=== PATIENT | male | born 1965 | race African-American/Black ===

== ENCOUNTER 2019-06-10 02:42 | Emergency (ER) | payer MEDICAID ==
[~2019-06-10] VITALS: Ht 170.2 cm; Wt 74.8 kg
[2019-06-10 02:55] VITALS: BP 165/78
--- NOTE | 2019-06-10 02:55 | NUR ---
ED Nurse Note: Patient walked in to ER c/o abcess on right side of mouth x 2 days. As per patient he broke his jaw 4 months ago. No SOB. Afebrile. VSS.
--- NOTE | 2019-06-10 03:00 | NUR ---
ED Nurse Note: ERMD at bedside.
[2019-06-10] MEDS ORDERED: HYDROcodone/Acetamin 5/325 tab ORAL ONE (03:15)
[2019-06-10] MEDS ORDERED: IBUPROFEN600 MG ORAL (03:16)
[2019-06-10] MEDS ORDERED: NORVASC10 MG ORAL (03:16)
[2019-06-10] MEDS ORDERED: AMOXICILLIN500 MG ORAL (03:16)
[2019-06-10] MEDS ORDERED: HYDROCODON-ACE1 EA15 ORAL (03:16)
--- NOTE | 2019-06-10 03:17 | Emergency Room Report ---
History of Present Illness General Chief Complaint: Toothache Source: Patient Present Illness HPI Is a 54-year-old male with a history of high blood pressure. He presents with chief complaint of dental pain. Onset for 1 day. There is some swelling to the left lower jaw. He also said he had a jaw fracture diagnosed at another hospital about 4 5 months ago. He never had surgery. He need to fix it. Patient complained of jaw pain that is 8 out of 10. Worse with eating. No fever chills but no nausea no vomiting. He is a smoker. Allergies: Coded Allergies: No Known Allergies (Unverified , 06/10/19) Patient History Past Medical History: see triage record, old chart reviewed, HTN Past Surgical History: other Pertinent Family History: none Social History: Reports: smoking Immunizations: other Reviewed Nursing Documentation: PMH: Agreed; PSxH: Agreed Nursing Documentation-PMH Hx Hypertension: Yes Hx Asthma: Yes Review of Systems Eye: Denies: eye pain, blurred vision ENT: Denies: ear pain, nose congestion, throat swelling Respiratory: Denies: cough, shortness of breath Cardiovascular: Denies: chest pain, palpitations Gastrointestinal: Denies: abdominal pain, diarrhea, nausea, vomiting Musculoskeletal: Denies: back pain, joint pain Skin: Denies: rash Neurological: Denies: headache, numbness Endocrine: Denies: increased thirst, increased urine Hematologic/Lymphatic: Denies: easy bruising All Other Systems: negative except mentioned in HPI Physical Exam Vital Signs Date Time Temp Pulse Resp B/P (MAP) Pulse Ox O2 Delivery O2 Flow Rate FiO2 06/10/19 02:47 98.1 75 14 165/78 (107) 94 Room Air Vitals with high blood pressure Sp02 EP Interpretation: reviewed, normal General Appearance: well appearing, no apparent distress, alert Head: normocephalic, atraumatic Eyes: bilateral eye PERRL, bilateral eye EOMI ENT: hearing grossly normal, normal pharynx, other - Poor dentition. On the right lower jaw near the first premolar, there is a small abscess. Neck: full range of motion, supple, no meningismus Respiratory: chest non-tender, lungs clear, normal breath sounds Cardiovascular #1: regular rate, rhythm, no murmur Gastrointestinal: normal bowel sounds, non tender, no mass, no organomegaly, no bruit, non-distended Musculoskeletal: back normal, normal range of motion, gait/station normal Psychiatric: mood/affect normal Procedures Incision and Drainage Incision and Drainage : Consent: Verbal Site: Dental Blade Size: 11 Anesthesia: 1% Lidocaine Volume Anesthetic (ccs): 1 Patient Tolerated: Well Complications: None Progress Local anesthetic with 1% lidocaine without epinephrine. A beta 1 cm incision there is small amount of pus expressed. Patient tolerated procedure without any problem. Medical Decision Making Diagnostic Impression: Primary Impression: Dental abscess Additional Impression: Hypertension Qualified Codes: I10 - Essential (primary) hypertension ER Course Patient with a dental abscess. No evidence of deep infection. As far as his jaw fracture, there is been in 4 to 5 months. He will need outpatient referral to see or maxillary surgeon. This can be done through his insurance and doctor. No emergent issue here. I explained this to the patient. Last Vital Signs Date Time Temp Pulse Resp B/P (MAP) Pulse Ox O2 Delivery O2 Flow Rate FiO2 06/10/19 02:55 98.1 78 14 165/78 94 Room Air Status: improved Disposition: HOME, SELF-CARE Condition: Stable Scripts Amlodipine Besylate (Norvasc) 10 Mg Tablet 10 MG ORAL DAILY, #90 TAB Prov: Harley Reyes MD 06/10/19 Ibuprofen* (MOTRIN*) 600 Mg Tablet 600 MG ORAL THREE TIMES A DAY, #30 TAB 0 Refills Prov: Harley Reyes MD 06/10/19 Hydrocodone/Acetaminophen 5-325* (HYDROCODONE/ACETAMINOPHEN 5-325*) 1 Each Tablet 1 TAB ORAL Q6H PRN for For Pain, #10 TAB 0 Refills Prov: Harley Reyes MD 06/10/19 Amoxicillin* (AMOXIL*) 500 Mg Capsule 500 MG ORAL THREE TIMES A DAY, #21 CAP Prov: Harley Reyes MD 06/10/19 Referrals: [facility],REFERRING (PCP) Additional Instructions: Follow-up with the dentist JUHI. Follow-up with your doctor within a week. You will need referral to see an oral maxillary surgeon or plastic surgeon for your jaw fracture. Take your blood pressure medication. Return if worse. Harley Reyes MD Jun 10, 2019 03:17
[2019-06-10 03:20] VITALS: BP 165/78
--- NOTE | 2019-06-10 03:20 | NUR ---
ED Nurse Note: Pt cleared by ERMD for discharge. DC instructions/prescription was given and explained to pt and verbalized understanding of teachings. All medical deviecs such as ID band removed. Pt is AAO x4, ambulatory and left with all personal belongings. Accompanied by .
== END 2019-06-10 03:20 | disposition home or self-care (01) ==
LOC: EMR 03:01
DX: K04.7 Periapical abscess without sinus (principal); I10 Essential (primary) hypertension; F17.200 Nicotine dependence, unspecified, uncomplicated; R68.84 Jaw pain
CPT/HCPCS: 10060; Z7502; 99282

== ENCOUNTER 2020-01-05 05:46 | Emergency (ER) | payer MEDICAID ==
[~2020-01-05] VITALS: Ht 170.2 cm; Wt 68.0 kg
[~2020-01-05 05:46] MED LIST: AMLODIPINE BESY10 MG ORAL; AMOXICILLIN500 MG ORAL; GABAPENTIN400 MG ORAL; HYDROCODON-ACE1 EA15 ORAL; IBUPROFEN600 MG ORAL; NORVASC10 MG ORAL; ZITHROMAX250 MG ORAL
--- NOTE | 2020-01-05 05:55 | NUR ---
ED Nurse Note: ambulated to ed c/o worsening left upper back pain x 2 weeks. reports aching constant 10/10 pain. patient was recently seen at [facility] [place] ed 2 weeks [facility] for same reason. patient ambulated steady to [facility]. changed into gown. AO4. NAD. VSS. all safety measures met.
[2020-01-05 06:00] VITALS: BP 143/79
--- NOTE | 2020-01-05 06:00 | NUR ---
ED Nurse Note: urine collected; sent down to lab.
[2020-01-05] MEDS ORDERED: Ketorolac 30mg Inj IM ONE (06:30)
--- NOTE | 2020-01-05 06:30 | NUR ---
ED Nurse Note: IV access established. blood collected; sent down to lab.
[2020-01-05] MEDS ORDERED: Ketorolac 30mg Inj IV ONE (06:45)
--- NOTE | 2020-01-05 06:45 | NUR ---
ED Nurse Note: Patient medicated; tolerated well. Patient down to imaging with instrumentation technician via wheelchair.
--- NOTE | 2020-01-05 06:47 | Emergency Room Report ---
History of Present Illness General Chief Complaint: Back Pain-No Injury Source: Patient Present Illness HPI 54-year-old male presents complaining of left shoulder and left upper back pain. Has been going on for several weeks now. Was seen here on 12/11 for same problem. Told it was a pinched nerve and prescribed medication. States the medications are not helping. Pain is dull, 7 out of 10, radiating down the left arm. Denies any weakness. Denies any chest pain or shortness of breath. No other aggravating relieving factors. Denies any other associated symptoms Allergies: Coded Allergies: No Known Allergies (Unverified , 06/10/19) COVID-19 Screening Contact w/high risk pt: No Recent Travel to affected area: No Experienced COVID-19 symptoms?: No COVID-19 Testing performed [employer]: No Patient History Past Medical History: none, HTN, asthma Past Surgical History: none Pertinent Family History: none Social History: Denies: smoking, alcohol use, drug use Immunizations: UTD Reviewed Nursing Documentation: PMH: Agreed; PSxH: Agreed Nursing Documentation-PMH Hx Hypertension: Yes Hx Asthma: Yes Review of Systems All Other Systems: negative except mentioned in HPI Physical Exam Vital Signs Date Time Temp Pulse Resp B/P (MAP) Pulse Ox O2 Delivery O2 Flow Rate FiO2 01/05/20 05:52 98.1 59 18 152/88 (109) 99 Room Air Sp02 EP Interpretation: reviewed, normal General Appearance: no apparent distress, alert, GCS 15, non-toxic Head: normocephalic, atraumatic Eyes: bilateral eye normal inspection, bilateral eye PERRL ENT: hearing grossly normal, normal pharynx, no angioedema, normal voice Neck: full range of motion, supple/symm/no masses Respiratory: chest non-tender, lungs clear, normal breath sounds, speaking full sentences Cardiovascular #1: regular rate, rhythm, no edema Cardiovascular #2: 2+ carotid (R), 2+ carotid (L), 2+ radial (R), 2+ radial (L) , 2+ dorsalis pedis (R), 2+ dorsalis pedis (L) Gastrointestinal: normal bowel sounds, non tender, soft, non-distended, no guarding, no rebound Rectal: deferred Genitourinary: normal inspection, no CVA tenderness Musculoskeletal: normal range of motion, gait/station normal, tender - L upper back pain TTP Neurologic: alert, motor strength/tone normal, oriented x3, sensory intact, responsive, speech normal Psychiatric: judgement/insight normal, memory normal, mood/affect normal, no suicidal/homicidal ideation Reflexes: 3+ bicep (R), 3+ bicep (L), 3+ tricep (R), 3+ tricep (L), 3+ knee (R) , 3+ knee (L) Skin: no rash Lymphatic: no adenopathy Medical Decision Making Diagnostic Impression: Primary Impression: Cervical radiculopathy ER Course Hospital Course 54 yo M presents with L shoulder and upper back pain Differential diagnoses include:cervical strain, KS/unstable angina, contusion, muscle strain Clinical course Patient placed on stretcher. After initial history and physical I ordered labs , EKG, CT C spine labs reviewed- all electrolytes normal, troponins negative, no leukocytosis, hemoglobin/hematocrit stable EKG - sinus bradycardia no acute ischemic changes interpreted by me CT C spine - multilevel cervical DJD I discussed findings with patient. Negative troponin. Vitals stable. No acute changes on EKG. CT showing findings consistent with cervical radiculopathy. I agree with initial assessment on previous visit. Recommend physical therapy. Does not have a PMD. I will provide referrals. Safe for discharge close outpatient follow-up I. I feel this is a highly complex case requiring extensive working including EKG/Rhythm strip, Xray/CT/US, Blood/urine lab work, repeat exams while in ED, and administration of strong opiates/narcotics for pain control, admission to hospital or close patient follow up. Diagnosis - cervical radiculopathy Stable and discharged to home. Instructed to followup with PMD/ortho. Return to ED if symptoms recur or worsen Labs Test 01/05/20 06:30 White Blood Count 3.9 K/UL (4.8-10.8) Red Blood Count 4.93 M/UL (4.70-6.10) Hemoglobin 16.0 G/DL (14.2-18.0) Hematocrit 50.3 % (42.0-52.0) Mean Corpuscular Volume 102 FL (80-99) Mean Corpuscular Hemoglobin 32.5 PG (27.0-31.0) Mean Corpuscular Hemoglobin Concent 31.8 G/DL (32.0-36.0) Red Cell Distribution Width 12.3 % (11.6-14.8) Platelet Count 293 K/UL (150-450) Mean Platelet Volume 7.1 FL (6.5-10.1) Neutrophils (%) (Auto) 40.8 % (45.0-75.0) Lymphocytes (%) (Auto) 40.7 % (20.0-45.0) Monocytes (%) (Auto) 13.7 % (1.0-10.0) Eosinophils (%) (Auto) 3.0 % (0.0-3.0) Basophils (%) (Auto) 1.8 % (0.0-2.0) Sodium Level 140 MMOL/L (136-145) Potassium Level 3.6 MMOL/L (3.5-5.1) Chloride Level 105 MMOL/L (98-107) Carbon Dioxide Level 29 MMOL/L (21-32) Anion Gap 6 mmol/L (5-15) Blood Urea Nitrogen 11 mg/dL (7-18) Creatinine 1.0 MG/DL (0.55-1.30) Estimat Glomerular Filtration Rate > 60 mL/min (>60) Glucose Level 99 MG/DL (74-106) Calcium Level 8.6 MG/DL (8.5-10.1) Total Bilirubin 0.5 MG/DL (0.2-1.0) Aspartate Amino Transf (AST/SGOT) 25 U/L (15-37) Alanine Aminotransferase (ALT/SGPT) 27 U/L (12-78) Alkaline Phosphatase 87 U/L (46-116) Troponin I 0.000 ng/mL (0.000-0.056) Total Protein 6.9 G/DL (6.4-8.2) Albumin 3.6 G/DL (3.4-5.0) Globulin 3.3 g/dL Albumin/Globulin Ratio 1.1 (1.0-2.7) EKG Diagnostic Results Rate: bradycardiac Rhythm: NSR ST Segments: no acute changes ASA given to the pt in ED: No Rhythm Strip Diag. Results EP Interpretation: yes Rhythm: NSR, no PVC's, no ectopy CT/MRI/US Diagnostic Results CT/MRI/US Diagnostic Results : Imaging Test Ordered: CT C spine Impression TECHNIQUE: Axial computed tomography images of the cervical spine without intravenous contrast. CTDI is 8.1 mGy and DLP is 278.2 mGy-cm. One or more of the following dose reduction techniques were used: automated exposure control, adjustment of the mA and/or kV according to patient size, use of iterative reconstruction technique. Coronal and sagittal reformatted images were created and reviewed. COMPARISON: No relevant prior studies available. FINDINGS: Vertebrae: Unremarkable. No acute fracture. Discs/spinal canal/neural foramina: Cervical straightening which may be secondary to positioning versus spasm. Posterior disc osteophyte complexes are seen at all levels of the cervical spine likely degree of central stenosis seen at C3/C4 and C4/C5. Severe right neural foraminal stenosis at C3/C4, bilateral right worse than left neural foraminal stenosis at C4/C5, severe left and moderate right neural foraminal stenosis at C5/C6, severe right worse on left neural foraminal stenosis at C6/C7 and severe right worse than left neural foraminal stenosis at C7/T1. Other bones/joints: Plates and screws seen involving the left mandible. Soft tissues: Unremarkable. Lung apices: Paraseptal emphysematous changes of the visualized lung apices. Mastoids: Evidence of previous canal wall down mastoidectomy on the left. Soft tissue density seen within the mastoid bowl. IMPRESSION: No acute fracture in the cervical spine. Cervical spondylosis with a degree of central stenosis at C3/C4-C4/C5. There are varying degrees of neuroforaminal stenosis. Last Vital Signs Date Time Temp Pulse Resp B/P (MAP) Pulse Ox O2 Delivery O2 Flow Rate FiO2 01/05/20 06:00 98.1 63 18 143/79 99 Room Air Status: improved Disposition: HOME, SELF-CARE Condition: Stable Scripts Lidocaine Patch* (Lidoderm Patch*) 1 Each Adh..patch 1 PATCH TOPIC DAILY, #7 PATCH 0 Refills Patch(es) may remain in place for up to 12 hours in any 24-hour period. Prov: Juan Angeles MD 01/05/20 Ibuprofen* (MOTRIN*) 600 Mg Tablet 600 MG ORAL Q8H PRN for FOR PAIN, #30 TAB 0 Refills Prov: Juan Angeles MD 01/05/20 Referrals: [facility],REFERRING (PCP) Juan Angeles MD Jan 05, 2020 06:47
[2020-01-05 06:56] LABS: BASOPHILS % (AUTO) 1.8 % (0.0-2.0); HEMATOCRIT 50.3 % (42.0-52.0); LYMPHOCYTES % (AUTO) 40.7 % (20.0-45.0); MEAN CORPUSCULAR VOLUME 102 FL (80-99); MONOCYTES % (AUTO) 13.7 % (1.0-10.0); NEUTROPHILS % (AUTO) 40.8 % (45.0-75.0); PLATELET COUNT 293 K/UL (150-450); RED BLOOD COUNT 4.93 M/UL (4.70-6.10); RED CELL DISTRIBUTION WIDTH 12.3 % (11.6-14.8); WHITE BLOOD COUNT 3.9 K/UL (4.8-10.8)
[2020-01-05 07:00] VITALS: BP 145/95
--- NOTE | 2020-01-05 07:00 | NUR ---
ED Nurse Note: pt back from imaging. patient presents in no acute distress. reattached to monitor; vitals stable to baseline.
[2020-01-05 07:03] LABS: ANION GAP 6 mmol/L (5-15); BLOOD UREA NITROGEN 11 mg/dL (7-18); CALCIUM 8.6 MG/DL (8.5-10.1); CARBON DIOXIDE 29 MMOL/L (21-32); CHLORIDE 105 MMOL/L (98-107); POTASSIUM 3.6 MMOL/L (3.5-5.1); SODIUM 140 MMOL/L (136-145)
[2020-01-05 07:08] LABS: ALANINE AMINOTRANSFERASE 27 U/L (12-78); ALBUMIN 3.6 G/DL (3.4-5.0); ALBUMIN/GLOBULIN RATIO 1.1 (1.0-2.7); ALKALINE PHOSPHATASE 87 U/L (46-116); ASPARTATE AMINO TRANSFERASE 25 U/L (15-37); BILIRUBIN,TOTAL 0.5 MG/DL (0.2-1.0)
--- NOTE | 2020-01-05 07:12 | NUR ---
ED Nurse Note: Patient states he left his keys in his car. Patient insists on leaving unit to find keys. PER DELLA, D/C IV and patient okay to leave unit to retrieve keys. Removed IV without incident.
--- NOTE | 2020-01-05 07:14 | NUR ---
HAND-OFF: Report given to YASMIN Cha. Endorsed removal of IV and patient off unit per ERMD.
--- NOTE | 2020-01-05 07:36 | Diagnostic Imaging Report ---
EXAM: CT Cervical Spine Without Intravenous Contrast CLINICAL HISTORY: PAIN TECHNIQUE: Axial computed tomography images of the cervical spine without intravenous contrast. CTDI is 8.1 mGy and DLP is 278.2 mGy-cm. One or more of the following dose reduction techniques were used: automated exposure control, adjustment of the mA and/or kV according to patient size, use of iterative reconstruction technique. Coronal and sagittal reformatted images were created and reviewed. COMPARISON: No relevant prior studies available. FINDINGS: Vertebrae: Unremarkable. No acute fracture. Discs/spinal canal/neural foramina: Cervical straightening which may be secondary to positioning versus spasm. Posterior disc osteophyte complexes are seen at all levels of the cervical spine likely degree of central stenosis seen at C3/C4 and C4/C5. Severe right neural foraminal stenosis at C3/C4, bilateral right worse than left neural foraminal stenosis at C4/C5, severe left and moderate right neural foraminal stenosis at C5/C6, severe right worse on left neural foraminal stenosis at C6/C7 and severe right worse than left neural foraminal stenosis at C7/T1. Other bones/joints: Plates and screws seen involving the left mandible. Soft tissues: Unremarkable. Lung apices: Paraseptal emphysematous changes of the visualized lung apices. Mastoids: Evidence of previous canal wall down mastoidectomy on the left. Soft tissue density seen within the mastoid bowl. IMPRESSION: No acute fracture in the cervical spine. Cervical spondylosis with a degree of central stenosis at C3/C4-C4/C5. There are varying degrees of neuroforaminal stenosis.
[2020-01-05] MEDS ORDERED: IBUPROFEN600 M1 ORAL (07:47)
[2020-01-05] MEDS ORDERED: LIDODERM700 M1 TOPIC (07:47)
[2020-01-05 07:55] VITALS: BP 145/95
== END 2020-01-05 07:56 | disposition home or self-care (01) ==
LOC: EMR 06:07
DX: M54.12 Radiculopathy, cervical region (principal); I10 Essential (primary) hypertension; J45.909 Unspecified asthma, uncomplicated
CPT/HCPCS: 36415; 72125; 80053; 84484; 85025; 93005; 96372; 96374; J1885; Z7502; 99284